=== PATIENT | female | born 1995 | race Caucasian/White ===

== ENCOUNTER → 2022-01-15 | Outpatient (CLI) | payer BC ==
[2022-01-15 22:33] LABS: Basophils # (A) 0.05 X 10*3/uL (0.00-0.10); Basophils % (A) 0.6 %; Eosinophils # (A) 0.14 X 10*3/uL (0.04-0.35); Eosinophils % (A) 1.8 %; HCT 40.8 % (37.2-46.3); HGB 13.3 g/dL (12.0-15.0); Immature Grans, Automated 0.4 %; Lymphocytes # (A) 1.84 X 10*3/uL (0.90-5.00); Lymphocytes % (A) 23.2 %; MCH 28.9 pg (27.0-32.0); MCHC 32.6 g/dL (32.0-37.0); MCV 88.7 fL (80.0-97.0); Mean Platelet Volume 9.6 fL (9.5-12.2); Monocytes # (A) 0.48 X 10*3/uL (0.20-1.00); Monocytes % (A) 6.1 %; NRBC Per 100 WBC 0 /100 WBCS (0.0-0.0); Neutrophils # (A) 5.38 X 10*3/uL (1.80-7.70); Neutrophils % (A) 67.9 %; Platelet Count 341 X 10*3/uL (140-440); RDW 12.1 % (11.5-14.5); WBC 7.92 X 10*3/uL (4.50-10.00)
== END | disposition home or self-care (01) ==
LOC: LABPAT 14:57
PROVIDERS: ATTEND Obstetrics & Gynecology Obstetrics
DX: Z30.2 Encounter for sterilization (principal)
CPT/HCPCS: 85025

== ENCOUNTER 2022-02-04 08:02 | Day surgery (SDC) | payer BC ==
[2022-01-29 16:12] VITALS: BMI 38.3
[~2022-02-04 08:02] MED LIST: DEXAMETHASONE SOD PHOSPHATE 4 MG/ML 1 ML VIAL IV ONE; HYDROmorphone 0.5 MG/0.5 ML SYRINGE IVP PRN; LACTATED RINGERS 1,000 ML IV SCH; LIDOCAINE 1% (10MG/ML) FOR IV START INTRADERMA PRN; ONDANSETRON 4 MG/2 ML VIAL IVP ONE; Pre Op ABX Message 1 EACH MISC MISCELLANE ONE; SCOPOLAMINE 1 MG/72 HR PATCH TRANSDERM ONE
[2022-02-04] MEDS ORDERED: KETOROLAC 15 MG/ML 1 ML VIAL ONE (09:22)
[2022-02-04] MEDS ORDERED: GLYCOPYRROLATE 0.2 MG/ML 2 ML VIAL ONE (09:22)
[2022-02-04] MEDS ORDERED: fentaNYL (PF) 50 MCG/ML 2 ML AMP ONE (09:22)
[2022-02-04] MEDS ORDERED: ROCURONIUM 10 MG/ML (5 ML VIAL) IV ONE (09:22)
[2022-02-04] MEDS ORDERED: PHENYLEPHRINE-0.9% NACL SYG 1,000 MCG/10 ML SYRINGE ONE (09:22)
[2022-02-04] MEDS ORDERED: NEOSTIGMINE 1 MG/ML 10 ML VIAL ONE (09:22)
[2022-02-04] MEDS ORDERED: PROPOFOL 10 MG/ML 20 ML VIAL IV ONE (09:22)
[2022-02-04] MEDS ORDERED: LIDOCAINE 2% INJ 20 MG/ML (2 ML VIAL) ONE (09:22)
[2022-02-04] MEDS ORDERED: SUCCINYLCHOLINE CHLORIDE 200 MG/10 ML VIAL IV ONE (09:22)
[2022-02-04] MEDS ORDERED: MIDAZOLAM 2 MG/2 ML VIAL ONE (09:22)
[2022-02-04] MEDS ORDERED: BUPIVACAINE (PF) 0.25% 30 ML VIAL SQ ONE ×4 (09:42→10:13)
--- NOTE | 2022-02-04 10:15 | P.OP ---
Date of Procedure: 02/04/22 Preoperative Diagnosis: Family planning, undesired fertility Postoperative Diagnosis: Same Procedure(s) Performed: Operative laparoscopy with bilateral salpingectomy Anesthesia: GETA Estimated Blood Loss (ml): 5 IV fluids (ml): 700 Urine output (ml): 100 Pathology: other (Bilateral fallopian tubes) Condition: stable Disposition: PACU Indications for Procedure: Status complete, patient desires permanent sterilization Operative Findings: Essentially normal pelvic anatomy, normal appendix was appreciated. Prior C- section scars appreciated with dense anterior bladder scarring Description of Procedure: Patient was taken back to the operating suite where general anesthesia was obtained without difficulty by the anesthesia department. She was prepped and draped in normal sterile fashion in the dorsal lithotomy position. A red rubber catheter was used to drain the bladder clear yellow urine. Weighted speculum posterior vaginal vault the anterior lip of the cervix is visualized and grasped with a single-tooth tenaculum and acorn uterine made pillar was advanced into the cervix as a means to miniplate the uterus throughout the procedure. Attention turned the patient's abdomen where in the umbilical fold a small skin incision is made. Through this incision the Veress needle is placed. Once the Veress needle was deemed to be in the proper position with a drop of CO2 pressure with insufflation of CO2 gas. CO2 insufflation was allowed to occur and approximately 3 L of gas were used to obtain pneumoperitoneum. At this time the 5 mm trocar and sleeve is placed through the skin incision toward the pneumoperitoneum. The above-noted findings were visualized. At this time and additional port site is placed in the right mid abdomen the blunt retractors used to further visualize the pelvic anatomy. An additional port site is placed under direct visualization in the left mid abdomen this is an 11 mm port placed under direct visualization once again. The right fallopian tube was then elevated and the mesosalpinx was transected with the LigaSure once complete the fallopian tube was then guided through the 11 trocar. This was then repeated on the opposite side. Both tubes were removed without difficulty. Hemostasis was appreciated and tubal sites. All instrument were then removed from the patient's abdomen. The skin incisions were closed with 4-0 Vicryl in a subcuticular fashion. Suture strips and sterile dressings were applied. The incisions were then instilled with lidocaine. All counts were correct 2 and patient tolerated procedure well was taken the recovery room awake in stable condition.
[2022-02-04 10:28] VITALS: RESP 16; TEMP 97
[2022-02-04] MEDS ORDERED: LACTATED RINGERS 1,000 ML IV ONE (10:44)
[2022-02-04 11:18] VITALS: BP 116/75; PULSE 78
== END 2022-02-04 11:48 | disposition home or self-care (01) ==
LOC: OR 08:02
PROVIDERS: ATTEND Obstetrics & Gynecology Obstetrics
DX: Z30.2 Encounter for sterilization (principal); N32.89 Other specified disorders of bladder; F32.A Depression, unspecified; E07.9 Disorder of thyroid, unspecified; Z79.890 Hormone replacement therapy; Z79.899 Other long term (current) drug therapy; F41.9 Anxiety disorder, unspecified; J45.909 Unspecified asthma, uncomplicated; Z90.49 Acquired absence of other specified parts of digestive tract; Z88.0 Allergy status to penicillin; Z83.49 Family history of other endocrine, nutritional and metabolic diseases; Z83.3 Family history of diabetes mellitus; Z82.49 Family history of ischemic heart disease and other diseases of the circulatory system; Z86.32 Personal history of gestational diabetes
CPT/HCPCS: 81025; 88302; 58661; J2250; J0330; J1100; J2710; J2405; J3010; J1885; J2370; J2704; J1170; J2001